=== PATIENT | male | born 1965 | race Caucasian/White ===

== ENCOUNTER 2017-12-21 23:43 | Emergency (ER) | payer BC, OTHER ==
[~2017-12-21] VITALS: Ht 175.3 cm; Wt 90.0 kg
[2017-12-22] MEDS ORDERED: LIDOCAINE 2%, 10ML INFIL ONE
[2017-12-22] MEDS ORDERED: AMOXICILLIN/CLAV 875-125MG TABLET PO ONE
[2017-12-22] MEDS ORDERED: AMOXICILLIN/CLAV 875-125MG TABLET ONE (00:07)
[2017-12-22] MEDS ORDERED: LIDOCAINE-MPF 2% ,5ML ONE (00:07)
[2017-12-22 01:50] VITALS: BP 103/66
== END 2017-12-22 01:52 | disposition home or self-care (01) ==
LOC: ED 12-22 00:31
DX: S81.852A Open bite, left lower leg, initial encounter (principal); S81.812A Laceration without foreign body, left lower leg, initial encounter; W54.0XXA Bitten by dog, initial encounter; Y93.89 Activity, other specified; Y92.009 Unspecified place in unspecified non-institutional (private) residence as the place of occurrence of the external cause; Y99.8 Other external cause status
CPT/HCPCS: 13121; 13122; 99285